=== PATIENT | female | born 1935 | race Caucasian/White ===

== ENCOUNTER → 2016-06-20 | Outpatient (CLI) | payer MEDICARE, BC | LOC: OD 10:09 | PROVIDERS: ATTEND Family Medicine Geriatric Medicine | DX: B19.10 Unspecified viral hepatitis B without hepatic coma (principal) | CPT/HCPCS: 36415; 80074 ==

== ENCOUNTER → 2016-08-01 | Outpatient (CLI) | payer MEDICARE, BC ==
[2016-08-01 07:36] LABS: ABSOLUTE EOSINOPHILS # (AUTO) 0.2 10^3/uL (0.0-0.6); ABSOLUTE LYMPHOCYTES (AUTO) 1.4 10^3/uL (0.5-4.7); ABSOLUTE MONOCYTES (AUTO) 0.4 10^3/uL (0.1-1.4); ABSOLUTE NEUT (AUTO) 2.6 10^3/uL (1.7-8.2); EOSINOPHILS % (AUTO) 4.3 % (0-6); HEMATOCRIT 40.7 % (36.0-47.0); HEMOGLOBIN 13.1 g/dL (12.0-15.5); HGB HCT DIFFERENCE -1.4; LYMPHOCYTES % (AUTO) 29.7 % (13-45); MEAN CORPUSCULAR HEMOGLOBIN 30.5 pg (27.0-33.4); MEAN CORPUSCULAR HGB CONC 32.3 g/dL (32.0-36.0); MEAN CORPUSCULAR VOLUME 94 fl (80-97); MONOCYTES % (AUTO) 8.3 % (3-13); RED BLOOD COUNT 4.31 10^6/uL (3.72-5.28); RED CELL DISTRIBUTION WIDTH 12.4 % (11.5-14.0); SEGMENTED NEUTROPHILS % (AUTO) 56.7 % (42-78); WHITE BLOOD COUNT 4.6 10^3/uL (4.0-10.5)
[2016-08-01 08:00] LABS: ALANINE AMINOTRANSFERASE 25 U/L (9-52); ALBUMIN 4.1 g/dL (3.5-5.0); ALKALINE PHOSPHATASE 79 U/L (38-126); ANION GAP 10 (5-19); ASPARTATE AMINO TRANSFERASE 26 U/L (14-36); BILIRUBIN,DIRECT 0.3 mg/dL (0.0-0.4); BILIRUBIN,TOTAL 0.6 mg/dL (0.2-1.3); BLOOD UREA NITROGEN 16 mg/dL (7-20); CALCIUM 9.5 mg/dL (8.4-10.2); CARBON DIOXIDE 29 mmol/L (22-30); CHLORIDE 96 mmol/L (98-107); CHOLESTEROL 229.59 mg/dL (0-200); CREATININE RESULT 0.81 mg/dL (0.52-1.25); Direct HDL 71 mg/dL (>40); GLUCOSE 97 mg/dL (75-110); POTASSIUM 4.1 mmol/L (3.6-5.0); SODIUM 134.7 mmol/L (137-145); TOTAL PROTEIN 7.3 g/dL (6.3-8.2); TRIGLYCERIDES 137 mg/dL (<150)
[2016-08-01 08:11] LABS: DIRECT LDL 120 mg/dL (<100)
== END ==
LOC: OD 07:04
PROVIDERS: ATTEND Family Medicine Geriatric Medicine
DX: I10 Essential (primary) hypertension (principal); K21.9 Gastro-esophageal reflux disease without esophagitis; E78.5 Hyperlipidemia, unspecified
CPT/HCPCS: 36415; 80053; 80061; 84443; 85025

== ENCOUNTER 2020-01-07 22:48 | Emergency (ER) | payer MEDICARE, BC ==
--- NOTE | 2020-01-08 00:01 | ER Document Report ---
ED Medical Screen (RME) - General Chief Complaint: Blood Pressure Problem Stated Complaint: HIGH BLOOD PRESSURE Time Seen by Provider: 01/07/20 23:54 Primary Care Provider: RONA BAXTER PA [Primary Care Provider] - Follow up as needed TRAVEL OUTSIDE OF THE [place] IN LAST 30 DAYS: No - HPI Notes: 01/08/20 00:03 84-year-old female to the emergency department with complaints of difficulty with her blood pressure for the past 2 days with associated dizziness. She states that she takes metoprolol 50 mg twice a day to control her blood pressure. Occasionally when it is not controlled with this regimen she will take an extra 25 mg at night. She states for the past couple days she has been feeling dizzy and she associated with her blood pressure. She states today she continued to feel dizzy and she took 50 mg of metoprolol tonight and then again in the evening. She states her symptoms persisted and she checked her blood pressure and it was 200 systolic. She states that she took another 25 mg of metoprolol about half an hour before arrival. She states she still feels dizzy and she characterizes it as she is spinning. Denies any chest pain, shortness of breath, nausea, vomiting, focal neurological deficits. Brief medical screening exam patient has cranial nerves II through XII intact with no pronator drift, normal [id number] bilaterally, no leg drift, normal [id number] bilaterally. I performed a brief medical screening exam on the patient determined that the patient needs further evaluation and management by main side provider. I have placed initial orders to help expedite care. - Related Data Allergies/Adverse Reactions: Penicillins Allergy (Mild, Verified 01/07/20 23:55) RASH Sulfa (Sulfonamide Antibiotics) Allergy (Verified 01/07/20 23:55) RASH codeine [Codeine] Adverse Reaction (Mild, Verified 01/07/20 23:55) Nausea Past Medical History - Past Medical History Cardiac Medical History: Reports: Hx Hypertension Denies: Hx Coronary Artery Disease, Hx Heart Attack Pulmonary Medical History: Denies: Hx Asthma, Hx Bronchitis, Hx COPD, Hx Pneumonia Neurological Medical History: Denies: Hx Cerebrovascular Accident, Hx Seizures GI Medical History: Reports: Hx Gastroesophageal Reflux Disease, Hx Hepatitis - HEPATITIS C? "yellow Jaundice". Denies: Hx Hiatal Hernia, Hx Ulcer Musculoskeltal Medical History: Reports Hx Arthritis, Reports Hx Musculoskeletal Deformity, Reports Hx Musculoskeletal Trauma Infectious Medical History: Reports: Hx Hepatitis - HEPATITIS C? "yellow Jaundice" Past Surgical History: Reports: Hx Hysterectomy, Hx Orthopedic Surgery - RIGHT SHOULDER ROTATOR CUFF--FAILED SURGERY, cervical fusion. Denies: Hx Mastectomy, Hx Open Heart Surgery, Hx Pacemaker - Immunizations Immunizations up to date: Yes Hx Diphtheria, Pertussis, Tetanus Vaccination: Yes Physical Exam - Vital signs Vitals: Temp Pulse Resp BP Pulse Ox 98.6 F 73 20 172/94 H 99 01/07/20 22:59 01/07/20 22:59 01/07/20 22:59 01/07/20 22:59 01/07/20 22:59 Course - Vital Signs Vital signs: Temp Pulse Resp BP Pulse Ox 98.6 F 73 20 172/94 H 99 01/07/20 22:59 01/07/20 22:59 01/07/20 22:59 01/07/20 22:59 01/07/20 22:59 Doctor's Discharge - Discharge Referrals: RONA BAXTER PA [Primary Care Provider] - Follow up as needed
[2020-01-08 00:57] LABS: APPEARANCE,URINE CLEAR; BILIRUBIN,URINE NEGATIVE (NEGATIVE); COLOR,URINE STRAW; GLUCOSE, URINE NEGATIVE (NEGATIVE); KETONES,URINE NEGATIVE (NEGATIVE); LEUKOCYTE ESTERASE,URINE MODERATE (NEGATIVE); NITRITE,URINE NEGATIVE (NEGATIVE); PROTEIN,URINE NEGATIVE (NEGATIVE); URINE SPECIFIC GRAVITY 1.006; UROBILINOGEN,URINE NEGATIVE mg/dL (<2.0)
[2020-01-08 01:13] LABS: ALBUMIN 4.3 g/dL (3.5-5.0); ALKALINE PHOSPHATASE 104 U/L (38-126); ASPARTATE AMINO TRANSFERASE 41 U/L (14-36); BILIRUBIN,DIRECT 0.1 mg/dL (0.0-0.4); BILIRUBIN,TOTAL 0.4 mg/dL (0.2-1.3); BLOOD UREA NITROGEN 18 mg/dL (7-20); CALCIUM 9.4 mg/dL (8.4-10.2); GLUCOSE 112 mg/dL (75-110); POTASSIUM 4.3 mmol/L (3.6-5.0); TOTAL PROTEIN 7.4 g/dL (6.3-8.2)
[2020-01-08 01:18] LABS: CARBON DIOXIDE 33 mmol/L (22-30); CHLORIDE 92 mmol/L (98-107)
[2020-01-08 01:21] LABS: ANION GAP 3 (5-19)
--- NOTE | 2020-01-08 01:35 | ER Document Report ---
ED General - General Chief Complaint: Dizziness Stated Complaint: HIGH BLOOD PRESSURE Time Seen by Provider: 01/07/20 23:54 Primary Care Provider: RONA BAXTER PA [NO LOCAL MD] - Follow up as needed TRAVEL OUTSIDE OF THE [place] IN LAST 30 DAYS: No - HPI Notes: 84-year-old female presents with high blood pressure. Patient states that her blood pressure has been "zooming all over the place". She states that today she went shopping and cooked lunch, she states that she made katie greens with pork, typically does not use pork and had an extra bite of the pork. She also states that she drank regular coffee today because her daughter came over, normally only drinks decaf coffee. This evening she took her blood pressure as she normally does and was 212/116, she states that she went to bed to lay down however was still concerned about her blood pressure, she got up and took it and it was in the 200s systolic on 2 more occasions. She states that she was afraid of having a stroke that is why she came to the emergency department. She states that she used to be on 3 blood pressure pills however currently is only on metoprolol. She takes metoprolol 50 mg twice a day and occasionally will take an extra. She states that her goal blood pressure is 162 systolic, she states her doctor has told her that she does not need to go any lower than that. The triage note reference she is having dizziness, patient states that that occurred yesterday after she had not had lunch or took any of her medications. She currently denies all symptoms, other than being concerned about why her blood pressure is so high. - Related Data Allergies/Adverse Reactions: Penicillins Allergy (Mild, Verified 01/07/20 23:55) RASH Sulfa (Sulfonamide Antibiotics) Allergy (Verified 01/07/20 23:55) RASH codeine [Codeine] Adverse Reaction (Mild, Verified 01/07/20 23:55) Nausea Past Medical History - General Information source: Patient - Social History Smoking Status: Former Smoker Frequency of alcohol use: None Drug Abuse: None Family History: CAD, Hypertension - Past Medical History Cardiac Medical History: Reports: Hx Hypertension Denies: Hx Coronary Artery Disease, Hx Heart Attack Pulmonary Medical History: Denies: Hx Asthma, Hx Bronchitis, Hx COPD, Hx Pneumonia Neurological Medical History: Denies: Hx Cerebrovascular Accident, Hx Seizures GI Medical History: Reports: Hx Gastroesophageal Reflux Disease, Hx Hepatitis - HEPATITIS C? "yellow Jaundice". Denies: Hx Hiatal Hernia, Hx Ulcer Musculoskeletal Medical History: Reports Hx Arthritis, Reports Hx Musculoskeletal Deformity, Reports Hx Musculoskeletal Trauma Infectious Medical History: Reports: Hx Hepatitis - HEPATITIS C? "yellow Jaundice" Past Surgical History: Reports: Hx Hysterectomy, Hx Orthopedic Surgery - RIGHT SHOULDER ROTATOR CUFF--FAILED SURGERY, cervical fusion. Denies: Hx Mastectomy, Hx Open Heart Surgery, Hx Pacemaker - Immunizations Immunizations up to date: Yes Hx Diphtheria, Pertussis, Tetanus Vaccination: Yes Hx Pneumococcal Vaccination: 11/07/15 Review of Systems - Review of Systems Constitutional: denies: Fever EENT: denies: Double vision Cardiovascular: denies: Chest pain, Dizziness, Lightheaded Respiratory: denies: Short of breath Gastrointestinal: denies: Abdominal pain Genitourinary: No symptoms reported Female Genitourinary: No symptoms reported Musculoskeletal: No symptoms reported Skin: No symptoms reported Hematologic/Lymphatic: No symptoms reported Neurological/Psychological: denies: Weakness, Headaches Physical Exam - Vital signs Vitals: Temp Pulse Resp BP Pulse Ox 98.6 F 73 20 172/94 H 99 01/07/20 22:59 01/07/20 22:59 01/07/20 22:59 01/07/20 22:59 01/07/20 22:59 - General General appearance: Appears well, Alert In distress: None - HEENT Head: Normocephalic, Atraumatic Extraocular movements intact: Yes Pupils: PERRL Mucous membranes: Moist Neck: Normal - Respiratory Breath sounds: Normal - Cardiovascular Rhythm: Regular Heart sounds: Normal auscultation - Abdominal Tenderness: Nontender - Extremities General upper extremity: Normal ROM General lower extremity: Normal ROM. No: Normal color - Neurological Neuro grossly intact: Yes Cognition: Normal Orientation: AAOx4 Speech: Normal Cranial nerves: Normal Cerebellar coordination: Normal Motor strength normal: LUE, RUE, LLE, RLE Sensory: Normal - Psychological Associated symptoms: Normal affect - Skin Skin Temperature: Warm Course - Re-evaluation Re-evalutation: 84-year-old female presents following elevated blood pressure readings at home, has a history of hypertension and currently is on metoprolol. She currently is asymptomatic and essentially denies all complaints. On exam she is alert and oriented, she is well-appearing and actually quite animated. Her initial blood pressure was 170/94 on arrival to the emergency department which is not far from her usual blood pressure, now that she is in the room her blood pressures increase but this could possibly from her animation and moving around. She has no gross focal neuro deficits, lungs are clear, heart RRR, no peripheral edema. She had a laboratory evaluation and head CT ordered from triage. Her EKG is nonischemic. 01/08/20 02:38 No leukocytosis or left shift, no acute anemia. Mild hyponatremia, 500 cc normal saline ordered, mental status does not reflect this value whatsoever. Creatinine within normal limits. Troponin negative. Urine not suggestive of UTI. 01/08/20 02:39 CT head without acute finding 01/08/20 04:49 Patient has had a decrease in her blood pressure without any medication intervention. She continues to be asymptomatic. I went to discuss her work-up with her, she feels comfortable going home. Patient also mentions that she recently has been tapering off of tramadol, she states that she typically took it twice a day however her doctor told her that he will be discontinue it so she is only been trying to take it once a day. Question if this is related to her fluctuating blood pressures she has had recently. I discussed with patient need to have close primary care follow-up and to call this morning to discuss as potentially there could be medication adjustments made. She verbalized understanding. Return precautions given, stable at time of discharge. - Vital Signs Vital signs: Temp Pulse Resp BP Pulse Ox 98.6 F 72 11 L 193/69 H 99 01/07/20 22:59 01/08/20 04:00 01/08/20 04:31 01/08/20 04:31 01/08/20 04:31 - Laboratory Result Diagrams: 01/08/20 01:45 01/08/20 00:40 Laboratory results interpreted by me: 01/08/20 01/08/20 01/08/20 00:40 00:40 01:45 Eos % (Auto) 6.6 H Sodium 128.4 L Chloride 92 L Carbon Dioxide 33 H Anion Gap 3 L Glucose 112 H AST 41 H Ur Leukocyte Esterase MODERATE H - Diagnostic Test Radiology reviewed: Image reviewed, Reports reviewed - EKG Interpretation by Me Additional EKG results interpreted by me: EKG is interpreted by me. Sinus rhythm, rate 63. Narrow QRS, QTC within normal limits. No ST segment elevation or depressions. Discharge - Discharge Clinical Impression: Asymptomatic hypertension Disposition: HOME, SELF-CARE Additional Instructions: Please touch base with your doctor this morning he especially wants to make any medication adjustments. Return to the emergency department for any concerning worsening symptoms. Referrals: RONA BAXTER PA [NO LOCAL MD] - Follow up as needed
--- NOTE | 2020-01-08 01:38 | RADIOLOGY REPORT (SQ) ---
EXAM DESCRIPTION: CT HEAD WITHOUT IV CONTRAST COMPLETED DATE/TME: 01/08/2020 01:00 CLINICAL INDICATION: 84-year-old female with dizziness. COMPARISON: 10/29/2013. TECHNIQUE: CT brain without contrast. This exam was performed according to our departmental dose optimization program which includes use of automated exposure control, adjustment of the mA and/or kV according to patient size and/or use of iterative reconstruction technique. FINDINGS: Multifocal regions of patchy hypoattenuation are present in a subcortical and periventricular deep white matter distribution, nonspecific; however, most likely represent small vessel ischemic disease, age indeterminate. The ventricles, and sulci are prominent compatible with underlying volume loss similar in appearance to the previous examination. The harkins-white matter differentiation is preserved. There is no mass effect, midline shift, intra- or extra-axial fluid collection/acute hemorrhage. The osseous structures are unremarkable. The paranasal sinuses and mastoid air cells are clear. IMPRESSION: 1. No acute intracranial abnormalities. Nonspecific white matter change most likely small vessel ischemic disease, age indeterminate. 2. CT is insensitive for early evaluation of acute stroke. If there is clinical concern for acute ischemia, an MRI may be considered.
[2020-01-08] MEDS ORDERED: NORMAL SALINE 500 ML IV ONE (01:56)
[2020-01-08 02:04] LABS: ABSOLUTE BASOPHILS # (AUTO) 0.1 10^3/uL (0.0-0.2); ABSOLUTE EOSINOPHILS # (AUTO) 0.4 10^3/uL (0.0-0.6); ABSOLUTE LYMPHOCYTES (AUTO) 1.5 10^3/uL (0.5-4.7); ABSOLUTE MONOCYTES (AUTO) 0.6 10^3/uL (0.1-1.4); ABSOLUTE NEUT (AUTO) 3.6 10^3/uL (1.7-8.2); BASOPHILS % (AUTO) 1.3 % (0-2); EOSINOPHILS % (AUTO) 6.6 % (0-6); HEMATOCRIT 38.6 % (36.0-47.0); LYMPHOCYTES % (AUTO) 24.7 % (13-45); MEAN CORPUSCULAR HEMOGLOBIN 31.1 pg (27.0-33.4); MEAN CORPUSCULAR HGB CONC 33.8 g/dL (32.0-36.0); MEAN CORPUSCULAR VOLUME 92 fl (80-97); PLATELET COUNT 275 10^3/uL (150-450); RED BLOOD COUNT 4.19 10^6/uL (3.72-5.28); RED CELL DISTRIBUTION WIDTH 12.9 % (11.5-14.0); SEGMENTED NEUTROPHILS % (AUTO) 57.4 % (42-78); TOTAL CELLS COUNTED % (AUTO) 100 %; WHITE BLOOD COUNT 6.2 10^3/uL (4.0-10.5)
[2020-01-08 04:55] VITALS: BP 193/69
--- NOTE | 2020-01-08 09:11 | EKG REPORT ---
SEVERITY:- NORMAL ECG - SINUS RHYTHM : Confirmed by: Rick Alan MD 08-Jan-2020 09:10:27
== END 2020-01-08 05:17 | disposition home or self-care (01) ==
LOC: ER 22:48
DX: I10 Essential (primary) hypertension (principal); E87.6 Hypokalemia; Z79.899 Other long term (current) drug therapy; Z87.891 Personal history of nicotine dependence; Z88.0 Allergy status to penicillin; Z88.2 Allergy status to sulfonamides
CPT/HCPCS: 93005; 99285; 96360; 36415; 83735; 85025; 80053; 81001; 84484; 70450; 93010; J7040

== ENCOUNTER 2020-02-04 20:35 | Emergency (ER) | payer MEDICARE, BC ==
--- NOTE | 2020-02-04 22:13 | ER Document Report ---
ED Medical Screen (RME) - General Chief Complaint: High Blood Pressure Stated Complaint: BLOOD PRESSURE ISSUES Time Seen by Provider: 02/04/20 22:03 Primary Care Provider: FINA JUAREZ MD [Primary Care Provider] - Follow up as needed Mode of Arrival: Ambulatory Information source: Patient Notes: HPI; 84-year-old female presents to the emergency room with persistent elevated blood pressure. States she was at her primary care's office yesterday her blood pressure with 128/88 today while she was at pain management her blood pressure was elevated to 220/91 states she was having some intermittent burning in her chest earlier today that radiates into her right arm. She states she went home around 7:30 and took a half a dose of an old prescription of amlodipine rechecked her blood pressure states it was going higher she took another half a pill around 9:30 and her blood pressure has not improved. She currently denies any chest pain, shortness of breath or difficulty breathing. But she is extremely concerned about her elevated blood pressure. PE: She is alert and oriented x3. Lungs: Clear to auscultation without rales, rhonchi, wheezes. Heart: Regular rate rhythm without murmurs, rubs, gallops. I have greeted and performed a rapid initial assessment of this patient. A comprehensive ED assessment and evaluation of the patient, analysis of test results and completion of the medical decision making process will be conducted by additional ED providers. I have specifically instructed the patient or family members with the patient to immediately return to any nursing staff should anything change in the patient's condition or with their chief complaint. TRAVEL OUTSIDE OF THE [place] IN LAST 30 DAYS: No - Related Data Allergies/Adverse Reactions: Penicillins Allergy (Mild, Verified 02/04/20 22:03) RASH Sulfa (Sulfonamide Antibiotics) Allergy (Verified 02/04/20 22:03) RASH codeine [Codeine] Adverse Reaction (Mild, Verified 02/04/20 22:03) Nausea Past Medical History - Social History Frequency of alcohol use: None Drug Abuse: None - Past Medical History Cardiac Medical History: Reports: Hx Hypertension Denies: Hx Coronary Artery Disease, Hx Heart Attack Pulmonary Medical History: Denies: Hx Asthma, Hx Bronchitis, Hx COPD, Hx Pneumonia Neurological Medical History: Denies: Hx Cerebrovascular Accident, Hx Seizures GI Medical History: Reports: Hx Gastroesophageal Reflux Disease, Hx Hepatitis - HEPATITIS C? "yellow Jaundice". Denies: Hx Hiatal Hernia, Hx Ulcer Musculoskeltal Medical History: Reports Hx Arthritis, Reports Hx Musculoskeletal Deformity, Reports Hx Musculoskeletal Trauma Infectious Medical History: Reports: Hx Hepatitis - HEPATITIS C? "yellow Jaundice" Past Surgical History: Reports: Hx Hysterectomy, Hx Orthopedic Surgery - RIGHT SHOULDER ROTATOR CUFF--FAILED SURGERY, cervical fusion. Denies: Hx Mastectomy, Hx Open Heart Surgery, Hx Pacemaker - Immunizations Immunizations up to date: Yes Hx Diphtheria, Pertussis, Tetanus Vaccination: Yes Physical Exam - Vital signs Vitals: Temp Pulse Resp BP Pulse Ox 98.2 F 70 18 221/83 H 98 02/04/20 20:48 02/04/20 20:48 02/04/20 20:48 02/04/20 20:48 02/04/20 20:48 Course - Vital Signs Vital signs: Temp Pulse Resp BP Pulse Ox 98.2 F 70 18 221/83 H 98 02/04/20 20:48 02/04/20 20:48 02/04/20 20:48 02/04/20 20:48 02/04/20 20:48 Doctor's Discharge - Discharge Referrals: FINA JUAREZ MD [Primary Care Provider] - Follow up as needed
[2020-02-04 22:50] LABS: ABSOLUTE BASOPHILS # (AUTO) 0.1 10^3/uL (0.0-0.2); ABSOLUTE EOSINOPHILS # (AUTO) 0.3 10^3/uL (0.0-0.6); ABSOLUTE LYMPHOCYTES (AUTO) 1.8 10^3/uL (0.5-4.7); ABSOLUTE MONOCYTES (AUTO) 0.5 10^3/uL (0.1-1.4); ABSOLUTE NEUT (AUTO) 3.9 10^3/uL (1.7-8.2); EOSINOPHILS % (AUTO) 4.7 % (0-6); LYMPHOCYTES % (AUTO) 27.1 % (13-45); MEAN CORPUSCULAR HEMOGLOBIN 30.9 pg (27.0-33.4); MEAN CORPUSCULAR HGB CONC 34.2 g/dL (32.0-36.0); MEAN CORPUSCULAR VOLUME 90 fl (80-97); PLATELET COUNT 281 10^3/uL (150-450); RED BLOOD COUNT 4.21 10^6/uL (3.72-5.28); RED CELL DISTRIBUTION WIDTH 12.7 % (11.5-14.0); SEGMENTED NEUTROPHILS % (AUTO) 59.2 % (42-78); TOTAL CELLS COUNTED % (AUTO) 100 %; WHITE BLOOD COUNT 6.6 10^3/uL (4.0-10.5)
--- NOTE | 2020-02-04 23:08 | RADIOLOGY REPORT (SQ) ---
CHEST X-RAY 2 view on 02/04/2020 at 10:39 PM CLINICAL INDICATION: Chest pain COMPARISON: 05/11/2013 FINDINGS: Vascular calcification is noted in the aorta. The lungs are clear. Cardiac, hilar and mediastinal contours are within normal limits. Degenerative changes are noted in the spine. Anterior cervical disc fusion is noted in the lower cervical spine. IMPRESSION: No acute disease.
[2020-02-04 23:13] LABS: ALBUMIN 4.3 g/dL (3.5-5.0); ALKALINE PHOSPHATASE 94 U/L (38-126); ANION GAP 5 (5-19); ASPARTATE AMINO TRANSFERASE 34 U/L (14-36); BILIRUBIN,DIRECT 0.1 mg/dL (0.0-0.4); BILIRUBIN,TOTAL 0.3 mg/dL (0.2-1.3); BLOOD UREA NITROGEN 16 mg/dL (7-20); CALCIUM 9.6 mg/dL (8.4-10.2); CARBON DIOXIDE 31 mmol/L (22-30); CHLORIDE 95 mmol/L (98-107); GLUCOSE 117 mg/dL (75-110); POTASSIUM 4.2 mmol/L (3.6-5.0); TOTAL PROTEIN 7.6 g/dL (6.3-8.2)
[2020-02-05] MEDS ORDERED: MAG HYDROX/AL HYDROX/SIMETH SUSP 30 ML UDCUP PO ONE (07:05)
[2020-02-05] MEDS ORDERED: LIDOCAINE 2% VISCOUS SOLN 15 ML UDCUP PO ONE (07:05)
--- NOTE | 2020-02-05 07:27 | ER Document Report ---
Entered by SOHAN YE SCRIBE 02/05/20 0638 Acting as scribe for:DAVID LOPEZ MD ED Blood Pressure Problem - General Chief Complaint: High Blood Pressure Stated Complaint: BLOOD PRESSURE ISSUES Time Seen by Provider: 02/04/20 22:03 Primary Care Provider: FINA JUAREZ MD [Primary Care Provider] - Follow up as needed Mode of Arrival: Ambulatory Information source: Patient Notes: This 84 year old female patient with a history of hypertension and GERD presents to the ED today with complaints of high blood pressure. Patient states that she had her 1st visit at [facility] yesterday and while the provider was manipulating her arm, she felt a pain in the center of her chest that felt like reflux. She states that her blood pressure was elevated at the appointment as well. She reports that her PCP Dr. Juarez restarted her on Amlodipine 2.5 mg PRN on 02/02 and that she took it prior to arrival. She also takes Metoprolol 50 mg BID. TRAVEL OUTSIDE OF THE [place] IN LAST 30 DAYS: No - Related Data Allergies/Adverse Reactions: Penicillins Allergy (Mild, Verified 02/04/20 22:03) RASH Sulfa (Sulfonamide Antibiotics) Allergy (Verified 02/04/20 22:03) RASH codeine [Codeine] Adverse Reaction (Mild, Verified 02/04/20 22:03) Nausea Past Medical History - General Information source: Patient - Social History Smoking Status: Former Smoker Cigarette use (# per day): No Chew tobacco use (# tins/day): No Smoking Education Provided: No Frequency of alcohol use: None Drug Abuse: None Family History: Reviewed & Not Pertinent, CAD, Hypertension - Past Medical History Cardiac Medical History: Reports: Hx Hypertension GI Medical History: Reports: Hx Gastroesophageal Reflux Disease, Hx Hepatitis - HEPATITIS C? "yellow Jaundice" Musculoskeletal Medical History: Reports Hx Arthritis, Reports Hx Mus culoskeletal Deformity, Reports Hx Musculoskeletal Trauma Infectious Medical History: Reports: Hx Hepatitis - HEPATITIS C? "yellow Jaundice" Past Surgical History: Reports: Hx Hysterectomy, Hx Orthopedic Surgery - RIGHT SHOULDER ROTATOR CUFF--FAILED SURGERY, cervical fusion. Denies: Hx Mastectomy - Immunizations Immunizations up to date: Yes Hx Diphtheria, Pertussis, Tetanus Vaccination: Yes Hx Pneumococcal Vaccination: 11/07/15 Review of Systems - Review of Systems Constitutional: See HPI EENT: No symptoms reported Cardiovascular: See HPI Respiratory: No symptoms reported Gastrointestinal: No symptoms reported Genitourinary: No symptoms reported Female Genitourinary: No symptoms reported Musculoskeletal: No symptoms reported Skin: No symptoms reported Hematologic/Lymphatic: No symptoms reported Neurological/Psychological: No symptoms reported -: Yes All other systems reviewed and negative Physical Exam - Vital signs Vitals: Temp Pulse Resp BP Pulse Ox 98.2 F 70 18 221/83 H 98 02/04/20 20:48 02/04/20 20:48 02/04/20 20:48 02/04/20 20:48 02/04/20 20:48 - General General appearance: Appears well, Alert In distress: None - HEENT Head: Normocephalic, Atraumatic Eyes: Normal Extraocular movements intact: Yes Pupils: PERRL Neck: Normal, Supple - Respiratory Respiratory status: No respiratory distress Chest status: Nontender Breath sounds: Normal Chest palpation: Normal - Cardiovascular Rhythm: Regular Heart sounds: Normal auscultation Murmur: No Friction rub: No Gallop: None auscultated - Abdominal Inspection: Normal Distension: No distension Bowel sounds: Normal Tenderness: Tender - Epigastric tenderness to palpation, Other - Abdomen soft Organomegaly: No organomegaly - Back Back: Normal, Nontender - Extremities General upper extremity: Normal inspection General lower extremity: Normal inspection. No: Edema - Neurological Neuro grossly intact: Yes Orientation: AAOx4 Nadja Coma Scale Eye Opening: Spontaneous Nadja Coma Scale Verbal: Oriented Nadja Coma Scale Motor: Obeys Commands Nadja Coma Scale Total: 15 - Psychological Associated symptoms: Normal affect, Normal mood - Skin Skin Temperature: Warm Skin Moisture: Dry Skin Color: Normal Course - Re-evaluation Re-evalutation: 02/05/20 08:12 The patient's epigastric and substernal chest discomfort went away completely after GI cocktail. She states it made her feel much better. - Vital Signs Vital signs: Temp Pulse Resp BP Pulse Ox 97.9 F 65 17 159/71 H 100 02/05/20 05:37 02/05/20 05:37 02/05/20 06:04 02/05/20 06:04 02/05/20 06:04 - Laboratory Results Result Diagrams: 02/04/20 22:27 02/04/20 22:27 Laboratory Results Interpreted: 02/04/20 22:27 Sodium 130.8 L Chloride 95 L Carbon Dioxide 31 H Glucose 117 H Critical Laboratory Results Reviewed: No Critical Results - Radiology Results Radiology Results Interpreted: 02/05/20 08:15 Chest x-ray does not show acute cardiopulmonary process. Critical Radiology Results Reviewed: No Critical Results - EKG Interpretation by Me EKG shows normal: Sinus rhythm, [place], Intervals, QRS Complexes, ST-T Waves Rate: Normal - 67 Rhythm: NSR Discharge - Discharge Clinical Impression: Chest pain due to GERD High blood pressure Qualifiers: Hypertension type: essential hypertension Qualified Code(s): I10 - Essential (primary) hypertension GERD (gastroesophageal reflux disease) Qualifiers: Esophagitis presence: without esophagitis Qualified Code(s): K21.9 - Gastro-esophageal reflux disease without esophagitis Condition: Stable Disposition: HOME, SELF-CARE Additional Instructions: Reflux Disease (GERD) Gastro-Esophageal Reflux Disease (GERD) is caused by stomach acid refluxing back up into the esophagus. The valve at the end of the esophagus may be weak. This is common in persons with a hiatal hernia. GERD symptoms can include indigestion, chest pain, heartburn, or food "sticking." Certain foods, alcohol, and aspirin can make GERD worse. Treatment depends on the severity. Usually, antacids or acid-suppressing medicines are used. When the esophagus is acutely inflamed, the physician will often prescribe membrane-protective drugs such as Carafate. Some patients benefit from medication such as Reglan that tightens the valve at the top of the stomach. Avoid those foods that bring on your symptoms. For many people, these foods are coffee, chocolate, onions, garlic, and carbonated drinks. Don't use alcohol, aspirin, caffeine, or tobacco. Don't eat late at night -- within 4 hours of bedtime. Don't over-eat. If necessary, elevate the head of your bed about 4 inches so that stomach acid will not roll up into your esophagus. Call the doctor if you develop severe chest pain, inability to swallow fluids, fever, or worsening symptoms. Continue your metoprolol 50 mg twice daily as it has been prescribed. Take the amlodipine 1/2 tablet every day, if your blood pressure stays elevated take an extra 1/2 tablet. Take antacids between meals and at bedtime for a few days. Take Prilosec OTC once daily. Follow-up with your primary care provider next week for recheck. RETURN TO THE EMERGENCY ROOM IF ANY NEW OR WORSENING SYMPTOMS. Referrals: FINA JUAREZ MD [Primary Care Provider] - Follow up as needed I personally performed the services described in the documentation, reviewed and edited the documentation which was dictated to the scribe in my presence, and it accurately records my words and actions.
[2020-02-05 08:33] VITALS: BP 186/73
--- NOTE | 2020-02-05 10:12 | EKG REPORT ---
SEVERITY:- NORMAL ECG - SINUS RHYTHM : Confirmed by: Rick Alan MD 05-Feb-2020 10:11:59
== END 2020-02-05 08:33 | disposition home or self-care (01) ==
LOC: ER 20:35
DX: I10 Essential (primary) hypertension (principal); K21.9 Gastro-esophageal reflux disease without esophagitis; R07.89 Other chest pain; R10.816 Epigastric abdominal tenderness; Z79.899 Other long term (current) drug therapy; Z87.891 Personal history of nicotine dependence; Z88.0 Allergy status to penicillin; Z88.2 Allergy status to sulfonamides
CPT/HCPCS: 93005; 99285; 36415; 85025; 80053; 84484; 71046; 93010; J3490; A9270